=== PATIENT | male | born 1935 | race Two or more races ===

== ENCOUNTER → 2019-06-01 | Outpatient (CLI) | payer MEDICARE ==
--- NOTE | 2019-06-01 19:47 | REP ---
Chest x-ray: Three views. History: Chronic cough. Multiple medical issues. 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 Water bottle configuration of the cardiac silhouette suggests the possibility of pericardial effusion. Cardiothoracic ratio is 63.4%. Pulmonary vasculature is cephalized. There is no evidence of pleural effusion or pulmonary edema. There is an expansile lesion involving the right anterior 7th rib. No other focal skeletal lesion is seen. 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 The thoracic aorta is somewhat tortuous. Impression: Enlarged water bottle shaped heart, question pericardial effusion. Pacemaker in place. Vascular cephalization. Right anterolateral 7th rib lesion, question expansile lesion. Consider chest CT. Electronically Signed by Andry Martin MD 06/01/2019 07:54 P
== END ==
LOC: M LRY 18:48
PROVIDERS: ATTEND Physician Assistant
DX: M19.011 Primary osteoarthritis, right shoulder (principal); M19.012 Primary osteoarthritis, left shoulder; I51.7 Cardiomegaly; R05 Cough; Z95.0 Presence of cardiac pacemaker
CPT/HCPCS: 71046; G0463

== ENCOUNTER 2019-07-02 18:43 | Emergency (ER) | payer MEDICARE ==
[~2019-07-02] VITALS: Ht 195.6 cm; Wt 86.4 kg
[2019-07-02] MEDS ORDERED: TETRACAINE 0.5% OPHTH SOLN 4ML OS ONE (19:15)
[2019-07-02 19:29] LABS: BASO % 0.6 % (0.0-1.0); EOS # 0.1 10^3/uL (0.0-0.5); EOS % 1.4 % (0.0-3.0); HEMATOCRIT 29.5 % (42.0-52.0); HEMOGLOBIN 8.9 g/dl (13.5-17.5); LYMPH # 1.5 10^3/uL (1.5-5.0); LYMPH % 22.8 % (24.0-44.0); MEAN CORPUSCULAR HEMOGLOBIN 23.4 pg (27.0-33.0); MEAN CORPUSCULAR HGB CONC 30.2 g/dl (32.0-36.5); MEAN CORPUSCULAR VOLUME 77.6 fl (80.0-96.0); MONO # 0.7 10^3/uL (0.0-0.8); MONO % 10.1 % (0.0-5.0); NEUTROPHILS # 4.3 10^3/uL (1.5-8.5); NEUTROPHILS % 64.6 % (36.0-66.0); PLATELET COUNT, AUTOMATED 185 10^3/uL (150-450); WHITE BLOOD COUNT 6.6 10^3/uL (4.0-10.0)
[2019-07-02 19:51] LABS: INR 2.05; PROTHROMBIN TIME 22.9 SECONDS (11.8-14.0)
[2019-07-02 19:54] LABS: CALCIUM LEVEL 9.1 MG/DL (8.8-10.2); CREATININE FOR GFR 3.16 MG/DL (0.70-1.30); GLOMERULAR FILTRATION RATE 20.2 (>35); POTASSIUM SERUM 4.3 MEQ/L (3.5-5.1)
[2019-07-02 21:26] VITALS: BP 121/70
== END 2019-07-02 21:28 | disposition short-term general hospital (02) ==
LOC: M ED 18:43
DX: H40.052 Ocular hypertension, left eye (principal); I11.0 Hypertensive heart disease with heart failure; I50.9 Heart failure, unspecified; N18.9 Chronic kidney disease, unspecified; I25.2 Old myocardial infarction; Z79.01 Long term (current) use of anticoagulants